=== PATIENT | male | born 1965 | race Caucasian/White ===

== ENCOUNTER 2023-07-10 10:38 | Emergency (ER) | payer BC ==
[2023-07-10] MEDS ORDERED: Lidocaine 1% 5 ML VIAL INJECT ONE (10:46)
[2023-07-10] MEDS ORDERED: Diphtheria,Pertussis(Acell),Tetanus Vaccine 0.5 ML Syringe IM ONE (11:15)
== END 2023-07-10 11:20 | disposition home or self-care (01) ==
LOC: MW.ED 10:38
DX: S61.211A Laceration without foreign body of left index finger without damage to nail, initial encounter (principal); Z23 Encounter for immunization; W31.2XXA Contact with powered woodworking and forming machines, initial encounter
CPT/HCPCS: 12001; 90471; 90715; 99282-25; J3490

== ENCOUNTER 2023-07-19 11:48 | Emergency (ER) | payer BC | END 2023-07-19 12:04 | disposition left against medical advice (07) | LOC: MW.ED 11:48 | DX: Z53.21 Procedure and treatment not carried out due to patient leaving prior to being seen by health care provider (principal) ==